=== PATIENT | male | born 1950 ===

== ENCOUNTER 2022-04-21 05:20 | Day surgery (SDC) | payer OTHER ==
[~2022-04-21] VITALS: Ht 160 cm; Wt 68.0 kg
[~2022-04-21 05:20] MED LIST: AMBIEN10 MG PO; B12 ACTIVE1000 MCG PO; BUSPAR PO; CLONAZEPAM1 MG PO; OMEGA-31000 MG PO; PEPCID AC10 MG PO; PRAVASTATIN SOD40 MG PO; ZOLOFT100 MG PO
[2022-04-21] MEDS ORDERED: NEURONTIN300 MG PO (09:28)
[2022-04-21] MEDS ORDERED: DERMOPLAST PAIN78 GM TOP (09:28)
[2022-04-21] MEDS ORDERED: KETO10TA2 PO (09:28)
[2022-04-21] MEDS ORDERED: PERCOCET 5-3251 EACH PO (09:28)
[2022-04-21] MEDS ORDERED: TAMS0.4C PO (09:29)
== END 2022-04-21 14:25 | disposition home or self-care (01) ==
LOC: CIR.AMB 05:20
PROVIDERS: ATTEND Surgery
DX: K64.8 Other hemorrhoids (principal); K64.4 Residual hemorrhoidal skin tags; K62.5 Hemorrhage of anus and rectum; Z20.822 Contact with and (suspected) exposure to COVID-19

== ENCOUNTER 2025-03-12 12:15 | Inpatient (IN) | payer OTHER ==
[~2025-03-12] VITALS: Ht 91.4 cm; Wt 72.6 kg
[~2025-03-12 12:15] MED LIST changes: +DERMOPLAST PAIN78 GM TOP; +KETO10TA2 PO; +NEURONTIN300 MG PO; +PERCOCET 5-3251 EACH PO; +TAMS0.4C PO
[2025-03-20] MEDS ORDERED: CEFTRIAXONE SODIUM 2,000 MG VIAL ONE (10:33)
[2025-03-20] MEDS ORDERED: METRONIDAZOLE/SODIUM CHLORIDE 500 MG/100 ML PIGGYBACK IV ONE ×2 (10:33→18:32)
[2025-03-20] MEDS ORDERED: ONDANSETRON HCL 2 MG/ML VIAL IV PRN (13:30)
[2025-03-20] MEDS ORDERED: OxyCODONE HCL 5 MG TABLET (ROXICODONE) PO PRN (13:30)
[2025-03-20] MEDS ORDERED: RINGERS SOLUTION,LACTATED 1,000 ML IV SCH (13:30)
[2025-03-20] MEDS ORDERED: MORPHINE SULFATE 4 MG/ML CARTRIDGE IV PRN (13:30)
[2025-03-20] MEDS ORDERED: ACETAMINOPHEN 500 MG GEL..CAP PO SCH (14:00)
[2025-03-20] MEDS ORDERED: BUPIVACAINE HCL 30 ML VIAL IJ ONE (14:45)
[2025-03-20] MEDS ORDERED: LIDOCAINE HCL 1%/EPINEPHRINE 20ML VIAL IJ ONE (14:45)
[2025-03-20] MEDS ORDERED: ENALAPRILAT DIHYDRATE 1.25 MG/ML VIAL IV PRN (15:00)
[2025-03-20] MEDS ORDERED: SUGAMMADEX SODIUM 200 MG/2 ML VIAL IV ONE ×2 (15:28→16:37)
[2025-03-20] MEDS ORDERED: SIMETHICONE 125 MG CAPSULE PO SCH (17:00)
[2025-03-20] MEDS ORDERED: GABAPENTIN 300 MG CAPSULE PO SCH (17:00)
[2025-03-20] MEDS ORDERED: HYOSCYAMINE SULFATE 0.125 MG TAB.SUBL SL SCH (17:00)
[2025-03-20] MEDS ORDERED: METOCLOPRAMIDE HCL 5 MG/ML VIAL IV SCH (17:00)
[2025-03-20] MEDS ORDERED: ENALAPRILAT DIHYDRATE 1.25 MG/ML VIAL IV ONE ×3 (17:54→22:20)
[2025-03-20] MEDS ORDERED: METOCLOPRAMIDE HCL 5 MG/ML VIAL ONE (18:31)
[2025-03-20 20:32] LABS: BASO % 0.2 % (0.1-1.2); EOS # 0.01 (0.04-0.54); EOS % 0.1 % (0.7-7.0); LYMPH # 0.97 (1.18-3.74); LYMPH % 7.3 % (19.3-53.1); MEAN PLATELET VOLUME 10.00 fl (9.4-12.4); MONO # 0.72 (0.24-0.82); MONO % 5.4 % (4.7-12.5); NEUT # 11.54 (1.56-6.13); NEUT % 86.8 % (34.0-71.1); RED CELL DISTRIBUTION WIDTH 12.1 % (11.6-14.4)
[2025-03-20] MEDS ORDERED: FAMOTIDINE/PF 20 MG/2 ML VIAL ONE (20:41)
[2025-03-20] MEDS ORDERED: CIPROFLOXACIN IN 5 % DEXTROSE 400 MG/200 ML PIGGYBAG IV ONE (20:41)
[2025-03-20] MEDS ORDERED: CELECOXIB 200 MG CAPSULE PO ONE (20:41)
[2025-03-20] MEDS ORDERED: SIMETHICONE 125 MG CAPSULE PO ONE (20:41)
[2025-03-20] MEDS ORDERED: CELECOXIB 200 MG CAPSULE PO SCH (21:00)
[2025-03-20] MEDS ORDERED: FAMOTIDINE/PF 20 MG/2 ML VIAL IV PUSH SCH (21:00)
[2025-03-20] MEDS ORDERED: PATIENTS OWN MEDICATION (MEDICAMENTO EN PISO) PO SCH (21:00)
[2025-03-20] MEDS ORDERED: BUSPIRONE HCL 15 MG TABLET PO SCH (21:00)
[2025-03-20] MEDS ORDERED: AMLODIPINE BESYLATE 2.5 MG TABLET PO SCH (21:00)
[2025-03-20] MEDS ORDERED: CIPROFLOXACIN IN 5 % DEXTROSE 200 ML IV SCH (21:00)
[2025-03-21] MEDS ORDERED: METOCLOPRAMIDE HCL 5 MG/ML VIAL ONE (00:58)
[2025-03-21] MEDS ORDERED: METRONIDAZOLE/SODIUM CHLORIDE 500 MG/100 ML PIGGYBACK IV ONE (00:58)
[2025-03-21] MEDS ORDERED: LABETALOL HCL 100 MG/20 ML ML ONE (01:33)
[2025-03-21] MEDS ORDERED: LABETALOL HCL 20MG/4ML SYRINGE IV ONE (01:45)
[2025-03-21] MEDS ORDERED: ENALAPRILAT DIHYDRATE 1.25 MG/ML VIAL IV ONE (01:45)
[2025-03-21 02:25] VITALS: BP 107/71; O2SAT 95
[2025-03-21 07:08] LABS: BASO % 0.1 % (0.1-1.2); EOS # 0.00 (0.04-0.54); EOS % 0.0 % (0.7-7.0); LYMPH # 1.02 (1.18-3.74); LYMPH % 7.5 % (19.3-53.1); MEAN PLATELET VOLUME 10.00 fl (9.4-12.4); MONO # 1.01 (0.24-0.82); MONO % 7.5 % (4.7-12.5); NEUT # 11.43 (1.56-6.13); NEUT % 84.7 % (34.0-71.1); RED CELL DISTRIBUTION WIDTH 12.0 % (11.6-14.4)
[2025-03-21 07:33] LABS: BUN CREA RATIO 9.0 (7.0-25.0); CREATININE SERUM 1.08 mg/dL (0.70-1.30); GFR 67.21; GLUCOSE FASTING 143.0 mg/dL (65-100); OSMOLALITY SERUM 275.0 MOSM/KG (275-295)
[2025-03-21 08:00] VITALS: BP 143/78; O2SAT 93
[2025-03-21] MEDS ORDERED: SERTRALINE HCL 50 MG TABLET PO SCH (09:00)
[2025-03-21] MEDS ORDERED: SERTRALINE HCL PO SCH (09:00)
[2025-03-21] MEDS ORDERED: LACTOBACILLUS ACIDOPHILUS 1 CAP CAP PO SCH (09:00)
[2025-03-21] MEDS ORDERED: SERTRALINE HCL 100 MG TABLET PO SCH (09:00)
[2025-03-21 16:00] VITALS: BP 92/60; O2SAT 94
[2025-03-21] MEDS ORDERED: PATIENTS OWN MEDICATION (MEDICAMENTO EN PISO) PO SCH (17:00)
[2025-03-21] MEDS ORDERED: ENOXAPARIN SODIUM 40 MG/0.4 ML SYRINGE SUBCUTANEO SCH (17:00)
[2025-03-22] VITALS: BP 102/62; O2SAT 95
[2025-03-22 06:11] LABS: BASO % 0.3 % (0.1-1.2); EOS # 0.33 (0.04-0.54); EOS % 2.9 % (0.7-7.0); LYMPH # 1.16 (1.18-3.74); LYMPH % 10.3 % (19.3-53.1); MEAN PLATELET VOLUME 10.00 fl (9.4-12.4); MONO # 0.73 (0.24-0.82); MONO % 6.5 % (4.7-12.5); NEUT # 8.97 (1.56-6.13); NEUT % 79.6 % (34.0-71.1); RED CELL DISTRIBUTION WIDTH 11.9 % (11.6-14.4)
[2025-03-22 06:57] LABS: BUN CREA RATIO 12.0 (7.0-25.0); CREATININE SERUM 1.06 mg/dL (0.70-1.30); GFR 68.67; GLUCOSE FASTING 124.0 mg/dL (65-100); OSMOLALITY SERUM 285.0 MOSM/KG (275-295)
[2025-03-22 08:00] VITALS: BP 91/54; O2SAT 95
[2025-03-22] MEDS ORDERED: FAMOTIDINE/PF 20 MG/2 ML VIAL IV PUSH SCH (09:00)
[2025-03-22] MEDS ORDERED: ENOXAPARIN SODIUM 40 MG/0.4 ML SYRINGE SUBCUTANEO SCH (09:00)
[2025-03-22] MEDS ORDERED: POTASSIUM CHLORIDE 20MEQ/100ML H2O PB IV ONE (10:15)
[2025-03-22] MEDS ORDERED: PAIN RELIEVER500 M2 PO (10:32)
[2025-03-22] MEDS ORDERED: GABAPENTIN300 MG PO (10:32)
[2025-03-22] MEDS ORDERED: POTASSIUM PHOS,M-BASIC-D-BASIC 15 MM in 0.9 % SODIUM CHLORIDE 250 ML IV ONE (11:00)
== END 2025-03-22 14:32 | disposition home or self-care (01) | DRG 331 ==
LOC: O/R 03-20 10:00 → SURH 03-20 11:30 → SURG 03-20 22:42
PROVIDERS: Internal Medicine Geriatric Medicine; ADMIT Surgery; ATTEND Surgery
PROC: 0DBP4ZZ Excision of Rectum, Percutaneous Endoscopic Approach (ICD-10-PCS; 2025-03-20)
PROC: 07BB4ZZ Excision of Mesenteric Lymphatic, Percutaneous Endoscopic Approach (ICD-10-PCS; 2025-03-20)
PROC: 0DJD8ZZ Inspection of Lower Intestinal Tract, Via Natural or Artificial Opening Endoscopic (ICD-10-PCS; 2025-03-20)
PROC: 4A1BXSH Monitoring of Gastrointestinal Vascular Perfusion using Indocyanine Green Dye, External Approach (ICD-10-PCS; 2025-03-20)
PROC: 0DTN4ZZ Resection of Sigmoid Colon, Percutaneous Endoscopic Approach (ICD-10-PCS; principal; 2025-03-20 11:30)
DX: K57.32 Diverticulitis of large intestine without perforation or abscess without bleeding (principal); K64.2 Third degree hemorrhoids